=== PATIENT | female | born 1985 | race Caucasian/White ===

== ENCOUNTER 2018-01-26 15:33 | Outpatient (CLI) | payer OTHER ==
[2018-01-26] MEDS: ACETAMINOPHEN 500 MG TAB PO (16:41)
[2018-01-26 18:38] LABS: ADD UMIC YES; UR ASCORBIC ACID 20 mg/dL (NEGATIVE); UR BILIRUBIN (Dip) NEGATIVE (NEGATIVE); UR BLOOD (Dip) 2+ mg/dL (NEGATIVE); UR CALCIUM OXALATE CRYSTAL FEW /HPF (NONE SEEN); UR CLARITY CLOUDY (CLEAR); UR COLOR AMBER (YELLOW); UR GLUCOSE (Dip) NEGATIVE (NEGATIVE); UR KETONES (Dip) TRACE mg/dL (NEGATIVE); UR LEUKOCYTE ESTERASE (Dip) 3+ Leu/ul (NEGATIVE); UR MUCUS FEW /HPF (NONE SEEN); UR NITRITE (Dip) NEGATIVE (NEGATIVE); UR RBC > 182 /HPF (0-5); UR SPECIFIC GRAVITY (Dip) 1.028 (1.003-1.030); UR SQUAMOUS EPITHELIAL CELL FEW /HPF (FEW); UR TOTAL PROTEIN (Dip) 2+ mg/dl (NEGATIVE); UR UROBILINOGEN (Dip) NEGATIVE (NEGATIVE); UR WBC > 182 /HPF (0-5)
== END 2018-01-26 18:50 | disposition home or self-care (01) ==
LOC: OBT 15:33 → L-D 15:34 → OBT 18:50
DX: O26.893 Other specified pregnancy related conditions, third trimester (principal); M54.5 Low back pain; Z3A.37 37 weeks gestation of pregnancy
CPT/HCPCS: 76815; 81001; 87086

== ENCOUNTER 2018-02-04 12:15 | Outpatient (CLI) | payer OTHER | END 2018-02-04 15:38 | disposition home or self-care (01) | LOC: OBT 12:15 → L-D 12:16 → OBT 15:38 | DX: O41.8X30 Other specified disorders of amniotic fluid and membranes, third trimester, not applicable or unspecified (principal); O99.213 Obesity complicating pregnancy, third trimester; E66.01 Morbid (severe) obesity due to excess calories; Z68.42 Body mass index [BMI] 45.0-49.9, adult; O13.3 Gestational [pregnancy-induced] hypertension without significant proteinuria, third trimester; Z3A.38 38 weeks gestation of pregnancy | CPT/HCPCS: 76818 ==

== ENCOUNTER 2018-02-07 08:53 | Outpatient (CLI) | payer OTHER ==
[2018-02-07 11:55] LABS: RUPTURE FETAL MEMBRANES NEGATIVE (NEGATIVE)
== END 2018-02-07 12:02 | disposition home or self-care (01) ==
LOC: OBT 08:53 → L-D 08:53 → OBT 12:02
DX: O62.9 Abnormality of forces of labor, unspecified (principal); Z3A.38 38 weeks gestation of pregnancy
CPT/HCPCS: 76818; 84112

== ENCOUNTER 2018-02-18 21:48 | Inpatient (IN) | payer OTHER ==
[2018-02-18] MEDS ORDERED: LACTATED RINGER'S 1,000 ML IV (22:18)
[2018-02-18] MEDS ORDERED: MISOPROSTOL 25 MCG CAPSULE PO (22:30)
[2018-02-18] MEDS ORDERED: BUTORPHANOL 2 MG INJ IV (22:30)
[2018-02-18] MEDS ORDERED: CARBOPROST 250 MCG INJ IM (22:30)
[2018-02-18] MEDS ORDERED: LIDOCAINE 1% (MPF) 30 ML INJ INJ (22:30)
[2018-02-18] MEDS ORDERED: OXYTOCIN 30 UNITS/LR 500 ML IV (22:30)
[2018-02-18] MEDS ORDERED: MISOPROSTOL 200 MCG TAB PR (22:30)
[2018-02-18] MEDS ORDERED: METHYLERGONOVINE 0.2 MG INJ IM (22:30)
[2018-02-18] MEDS: LACTATED RINGER'S 1,000 ML IV (23:36)
[2018-02-19] MEDS ORDERED: MINERAL OIL LIGHT 10 ML VIAL TOP (00:30)
[2018-02-19 00:35] LABS: ADD MAN DIFF? NO
[2018-02-19 00:37] LABS: WHITE BLOOD COUNT 12.6 10^3/ul (4.8-10.8)
[2018-02-19 00:37] LABS: BASOPHILS % 0.2 % (0.0-2.0); EOSINOPHILS # 0.1 10^3/ul (0.0-0.5); EOSINOPHILS % 0.6 % (0.0-7.0); HEMATOCRIT 34.7 % (37.0-47.0); LYMPHOCYTES # 3.6 10^3/ul (0.8-2.9); LYMPHOCYTES % 28.8 % (15.0-51.0); MEAN CORPUSCULAR HEMOGLOBIN 25.5 pg (29.0-33.0); MEAN CORPUSCULAR HGB CONC 31.7 g/dl (32.0-37.0); MEAN CORPUSCULAR VOLUME 80.3 fl (82.0-101.0); MEAN PLATELET VOLUME 11.1 fl (7.4-10.4); MONOCYTE # 0.9 10^3/ul (0.3-0.9); MONOCYTES % 7.3 % (0.0-11.0); NEUTROPHIL # 7.8 10^3/ul (1.6-7.5); NEUTROPHILS % 61.6 % (39.0-77.0); PLATELET COUNT 221 10^3/UL (140-415); RED BLOOD COUNT 4.32 10^6/ul (4.20-5.40); RED CELL DISTRIBUTION WIDTH 15.9 % (11.5-14.5)
[2018-02-19] MEDS: OXYTOCIN 30 UNITS/LR 500 ML IV ×3 (00:43→22:17)
[2018-02-19 01:03] LABS: INR 0.87; PARTIAL THROMBOPLASTIN TIME 26.7 Sec (25.0-35.0); PROTIME 11.9 Sec (11.9-14.9); PT RATIO 0.9
[2018-02-19 01:28] LABS: HEPATITIS B SURFACE ANTIGEN NEGATIVE (NEGATIVE)
[2018-02-19] MEDS: LACTATED RINGER'S 1,000 ML IV ×3 (06:49→16:14)
[2018-02-19] MEDS ORDERED: DIPHENHYDRAMINE 50 MG INJ IV (14:00)
[2018-02-19] MEDS ORDERED: EPHEDrine SULFATE 50 MG/5 ML SYG IV (14:00)
[2018-02-19] MEDS ORDERED: ONDANSETRON 4 MG INJ IV (14:00)
[2018-02-19] MEDS ORDERED: FENTAnyl 2MCG/ML-ROPIV 0.2% 100 ML BAG EPI (14:00)
[2018-02-19] MEDS ORDERED: NALOXONE (0.4 MG/ML) INJ IV (14:00)
[2018-02-19 14:57] LABS: RAPID PLASMA REAGIN NONREACTIVE (NR)
[2018-02-20] MEDS: OXYTOCIN 30 UNITS/LR 500 ML IV (02:48)
[2018-02-20] MEDS ORDERED: OXYTOCIN 30 UNITS/LR 500 ML IV (03:00)
[2018-02-20] MEDS ORDERED: SENNA/DOCUSATE NA (8.6MG/50MG) TAB PO (03:00)
[2018-02-20] MEDS ORDERED: MISOPROSTOL 200 MCG TAB PR (03:00)
[2018-02-20] MEDS ORDERED: DIBUCAINE 1% 30 GM OINT PR (03:00)
[2018-02-20] MEDS ORDERED: WITCH HAZEL/GLYCERIN PAD PR (03:00)
[2018-02-20] MEDS ORDERED: ACETAMINOPHEN 325 MG TAB PO (03:00)
[2018-02-20] MEDS ORDERED: ONDANSETRON 4 MG INJ IV (03:00)
[2018-02-20] MEDS ORDERED: ZOLPIDEM 5 MG TAB PO (03:00)
[2018-02-20] MEDS ORDERED: DIPHENHYDRAMINE 50 MG INJ IV (03:00)
[2018-02-20] MEDS ORDERED: CARBOPROST 250 MCG INJ IM (03:00)
[2018-02-20] MEDS ORDERED: METHYLERGONOVINE 0.2 MG INJ IM (03:00)
[2018-02-20] MEDS: OXYCODONE/ASPIRIN (4.88/325) TAB PO (03:23)
[2018-02-20] MEDS: LANOLIN 7 GM TUBE TOP (03:23)
[2018-02-20] MEDS: BENZOCAINE 20% 56 ML SPRAY TOP (03:23)
[2018-02-20] MEDS: IBUPROFEN 600 MG TAB PO ×3 (05:54→18:00)
[2018-02-20] MEDS: DEXTROSE 5%-LR 1,000 ML IV ×2 (06:51→10:56)
[2018-02-20] MEDS: LACTATED RINGER'S 1,000 ML IV* ×2 (06:51→10:56)
[2018-02-21] MEDS: IBUPROFEN 600 MG TAB PO ×3 (00:06→11:59)
[2018-02-21 08:51] LABS: ADD MAN DIFF? NO
[2018-02-21 09:05] LABS: WHITE BLOOD COUNT 12.2 10^3/ul (4.8-10.8)
[2018-02-21 09:05] LABS: BASOPHILS % 0.2 % (0.0-2.0); EOSINOPHILS # 0.1 10^3/ul (0.0-0.5); HEMATOCRIT 31.6 % (37.0-47.0); HEMOGLOBIN 9.9 g/dl (12.0-16.0); LYMPHOCYTES # 4.2 10^3/ul (0.8-2.9); LYMPHOCYTES % 34.2 % (15.0-51.0); MEAN CORPUSCULAR HEMOGLOBIN 25.5 pg (29.0-33.0); MEAN CORPUSCULAR HGB CONC 31.3 g/dl (32.0-37.0); MEAN CORPUSCULAR VOLUME 81.4 fl (82.0-101.0); MEAN PLATELET VOLUME 11.1 fl (7.4-10.4); MONOCYTE # 0.9 10^3/ul (0.3-0.9); MONOCYTES % 7.5 % (0.0-11.0); NEUTROPHIL # 6.8 10^3/ul (1.6-7.5); PLATELET COUNT 177 10^3/UL (140-415); RED BLOOD COUNT 3.88 10^6/ul (4.20-5.40); RED CELL DISTRIBUTION WIDTH 16.1 % (11.5-14.5)
[2018-02-21] MEDS: DIPHTH/TET/ACEL PERTUSS (ADULT) 0.5 ML VIAL IM* (12:01)
[2018-02-22] MEDS ORDERED: MEASLES,MUMPS,RUBELLA VACCINE INJ SC* (09:00)
== END 2018-02-21 12:35 | disposition home or self-care (01) | DRG 774 ==
LOC: PP1 02-20 00:46 → OBT 21:48 → L-D 21:48 → OBT 22:17 → L-D 22:17
PROVIDERS: Obstetrics & Gynecology Gynecology
PROC: 10E0XZZ Delivery of Products of Conception, External Approach (ICD-10-PCS; principal; 2018-02-19)
PROC: 3E033VJ Introduction of Other Hormone into Peripheral Vein, Percutaneous Approach (ICD-10-PCS; 2018-02-19)
DX: O48.0 Post-term pregnancy (principal); O10.92 Unspecified pre-existing hypertension complicating childbirth; Z68.42 Body mass index [BMI] 45.0-49.9, adult; Z3A.40 40 weeks gestation of pregnancy; O99.214 Obesity complicating childbirth; E66.01 Morbid (severe) obesity due to excess calories; Z37.0 Single live birth
CPT/HCPCS: 62319; 76815; 76818; 85025; 85610; 85730; 86592; 86850; 86900; 86901; 87340